=== PATIENT | male | born 1955 | race Caucasian/White ===

== ENCOUNTER 2016-10-23 09:01 | Emergency (ER) | payer OTHER ==
[~2016-10-23] VITALS: Ht 182.9 cm; Wt 120.0 kg
[~2016-10-23 09:01] MED LIST: CARV12.52 PO; GLIP5 PO; GLUCTAB PO; LISI-360 PO; OMEP20TA PO; ST JTAB PO; ZOCO40TA PO
[2016-10-23 09:05] VITALS: BP 113/74; PULSE 77; RESP 16; TEMP 98.1; O2SAT 98
[2016-10-23] MEDS ORDERED: ASPI81CH CHEW (09:25)
[2016-10-23] MEDS ORDERED: GLIP5TAB8 PO (09:25)
[2016-10-23] MEDS ORDERED: CARV12.52 PO (09:25)
[2016-10-23] MEDS ORDERED: SIMV80TA PO (09:25)
[2016-10-23] MEDS ORDERED: LISI10TA3 PO (09:25)
[2016-10-23] MEDS ORDERED: OMEP20TA PO (09:25)
[2016-10-23] MEDS ORDERED: METF500T PO (09:25)
[2016-10-23] MEDS ORDERED: SODIUM CHLORIDE 0.9% FLUSH 10 ML FLUSH IV FLUSH PRN (09:30)
--- NOTE | 2016-10-23 09:46 | PD ---
HPI . Abdominal bloating and constipation Chief Complaint: GI Complaint Time Seen by Provider: 09:22 Travel History International Travel<30 days: No Contact w/Intl Traveler<30days: No Traveled to known affect area: No History of Present Illness HPI This patient presents with the chief complaint of abdominal bloating and constipation for 5 days. His symptoms are exacerbated by eating and relieved by taking magnesium citrate. He reports minimal pain and rates it at 1/10. He has had no associated vomiting or fever. He does report decreased urinary output. He reports a previous similar episode several weeks ago. He took magnesium citrate and seemed to be normal until his symptoms recurred 5 days ago. The patient reports no chronic medical problems and states that he does not take any medications regularly. The patient subsequently admits to a history of hypertension, diabetes, previous PR status post CABG. He takes various medications for all of these problems. PFSH Past Medical History Hx Anticoagulant Therapy: Yes (asa 81mg) Anxiety: Yes Cardiovascular Problems: Yes (htn on meds, 5 vessel bypass, PR x 1) High Cholesterol: Yes Coronary Artery Disease: Yes Diabetes: Yes (type 2) Patient Takes Glucophage: No Diminished Hearing: No GERD: Yes Hypertension: Yes Musculoskeletal: Yes (chronic right knee pain) Immunizations Current: No Myocardial Infarction: Yes Past Surgical History Coronary Artery Bypass Graft: Yes (5 vessel 12/2013) Social History Alcohol Use: No Tobacco Use: No Substance Use: No Allergies-Medications (Allergen,Severity, Reaction): Coded Allergies: No Known Allergies (Verified , 10/23/16) Reported Meds & Prescriptions Reported Meds & Active Scripts Active Reported Simvastatin 80 Mg Tab 80 Mg PO HS Omeprazole 20 Mg Tab 20 Mg PO DAILY Metformin (Metformin HCl) 500 Mg Tab 500 Mg PO BIDPC With meals Lisinopril 10 Mg Tab 10 Mg PO DAILY Glipizide 5 Mg Tab 5 Mg PO DAILY Take 30 minutes before a meal Carvedilol 12.5 Mg Tab 12.5 Mg PO BID Aspirin 81 Mg Chew 81 Mg CHEW DAILY Review of Systems Except as stated in HPI: all other systems reviewed are Neg General / Constitutional: No: Fever, Chills Cardiovascular: No: Chest Pain or Discomfort Respiratory: No: Shortness of Breath Gastrointestinal: Positive: Abdominal Pain, Constipation, No: Nausea, Vomiting , Diarrhea Genitourinary: Positive: Decreased Urinary Output, No: Urgency, Frequency, Dysuria Physical Exam Narrative GENERAL: Obese man who does not appear to be in any acute distress. He is lying comfortably on the stretcher. SKIN: Warm and dry. He is noted to have scars on both lower extremities medially compatible with previous CABG. HEAD: Atraumatic. Normocephalic. EYES: Pupils equal and round. Sclerae are anicteric. ENT: No nasal bleeding or discharge. Mucous membranes pink and moist. NECK: Trachea midline. Neck is supple. CARDIOVASCULAR: Regular rate and rhythm. Heart sounds are normal. RESPIRATORY: No accessory muscle use. Lungs are clear with good air movement throughout. GASTROINTESTINAL: Abdomen soft, non-tender, nondistended. RECTAL: No hemorrhoids seen. Rectal tone is normal. There is no significant stool in the rectal vault. MUSCULOSKELETAL: No obvious deformities. No edema. NEUROLOGICAL: Awake and alert. No obvious cranial nerve deficits. Motor grossly within normal limits. Normal speech. PSYCHIATRIC: Appropriate mood and affect; insight and judgment normal. Data Data Last Documented VS Vital Signs Date Time Temp Pulse Resp B/P (MAP) Pulse Ox O2 Delivery O2 Flow Rate FiO2 10/23/16 09:05 98.1 77 16 113/74 (87) 98 Orders Orders Basic Metabolic Panel (Bmp) (10/23/16 09:30) Complete Blood Count With Diff (10/23/16 09:30) Sodium Chloride 0.9% Flush (Ns Flush) (10/23/16 09:30) Ct Abd/Pel W/O Iv Contrast (10/23/16 10:36) Sodium Chlor 0.9% 1000 Ml Inj (Ns 1000 M (10/23/16 10:45) Labs Laboratory Tests Test 10/23/16 09:42 White Blood Count 10.1 TH/MM3 Red Blood Count 4.88 MIL/MM3 Hemoglobin 13.2 GM/DL Hematocrit 39.9 % Mean Corpuscular Volume 81.7 FL Mean Corpuscular Hemoglobin 27.1 PG Mean Corpuscular Hemoglobin Concent 33.2 % Red Cell Distribution Width 13.8 % Platelet Count 280 TH/MM3 Mean Platelet Volume 8.4 FL Neutrophils (%) (Auto) 78.6 % Lymphocytes (%) (Auto) 10.5 % Monocytes (%) (Auto) 6.8 % Eosinophils (%) (Auto) 2.2 % Basophils (%) (Auto) 1.9 % Neutrophils # (Auto) 7.9 TH/MM3 Lymphocytes # (Auto) 1.1 TH/MM3 Monocytes # (Auto) 0.7 TH/MM3 Eosinophils # (Auto) 0.2 TH/MM3 Basophils # (Auto) 0.2 TH/MM3 CBC Comment DIFF FINAL Differential Comment Blood Urea Nitrogen 32 MG/DL Creatinine 1.80 MG/DL Random Glucose 225 MG/DL Calcium Level 9.5 MG/DL Sodium Level 136 MEQ/L Potassium Level 5.1 MEQ/L Chloride Level 98 MEQ/L Carbon Dioxide Level 30.2 MEQ/L Anion Gap 8 MEQ/L Estimat Glomerular Filtration Rate 39 ML/MIN MDM Medical Decision Making Medical Screen Exam Complete: Yes Emergency Medical Condition: Yes Medical Record Reviewed: Yes (medical history significant for hypertension, diabetes, previous PR status post CABG and previous poor wound healing) Differential Diagnosis Differential diagnosis of abdominal pain includes but is not limited to gastritis, pancreatitis, hepatitis, gastroenteritis, gallbladder disease, constipation, urinary retention, UTI, peptic ulcer disease, diverticulitis or appendicitis Narrative Course This patient presents complaining with abdominal bloating associated with the patient for the last 5 days. He has a benign abdominal exam and appears well. CBC & BMP Diagram 10/23/16 09:42 Calcium Level 9.5 Renal function has worsened. I have ordered a fluid bolus. CT abd/pelvis: CONCLUSION: 1. Small approximate 3-4 mm left UVJ stone causing slight hydronephrosis. 2. 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 This man has a kidney stone. He will be treated with Flomax. He is having very little pain so I will treat his pain with Ultram. He will be referred to urology. Diagnosis Primary Impression: abdominal bloating Additional Impression: Kidney stone Referrals: Luke Camarillo MD 3 days Patient Instructions: General Instructions, Kidney Stones (DC) Med/Other Pt SpecificInfo: Prescription(s) given Scripts Tramadol (Ultram) 50 Mg Tab 50 MG PO Q4H Y for PAIN, #12 TAB 0 Refills Prov: Trupti Caldwell MD 10/23/16 Tamsulosin (Flomax) 0.4 Mg Cap 0.4 MG PO HS for Manage Prostate Problems, #30 CAP 0 Refills Prov: Trupti Caldwell MD 10/23/16 Disposition: 01 DISCHARGE HOME Condition: Stable Trupti Caldwell MD Oct 23, 2016 09:46
[2016-10-23 09:51] LABS: AUTOMATED NEUTROPHIL # 7.9 TH/MM3 (1.8-7.7); BASOPHIL # 0.2 TH/MM3 (0-0.2); BASOPHIL % 1.9 % (0.0-2.0); EOSINOPHIL # 0.2 TH/MM3 (0-0.4); EOSINOPHIL % 2.2 % (0.0-4.0); HEMATOCRIT 39.9 % (39.0-51.0); LYMPH % 10.5 % (9.0-44.0); LYMPHOCYTE # 1.1 TH/MM3 (1.0-4.8); MEAN CELL VOLUME 81.7 FL (80.0-100.0); MEAN CORPUSCULAR HEMOGLOBIN 27.1 PG (27.0-34.0); MEAN CORPUSCULAR HGB CONC 33.2 % (32.0-36.0); MONO % 6.8 % (0.0-8.0); NEUT % 78.6 % (16.0-70.0); PLATELET COUNT 280 TH/MM3 (150-450); RED BLOOD COUNT 4.88 MIL/MM3 (4.50-5.90); RED CELL DISTRIBUTION WIDTH 13.8 % (11.6-17.2); WHITE BLOOD COUNT 10.1 TH/MM3 (4.0-11.0)
[2016-10-23 10:06] LABS: BICARBONATE 30.2 MEQ/L (21.0-32.0)
[2016-10-23 10:14] LABS: HEMO FLAGS DIFF FINAL; POTASSIUM 5.1 MEQ/L (3.5-5.1)
[2016-10-23] MEDS ORDERED: SODIUM CHLOR 0.9% 1000 ML INJ 1,000 ML IV ONE (10:45)
--- NOTE | 2016-10-23 11:10 | RADRPT ---
EXAM DATE/TIME: 10/23/2016 10:38 [facility] COMPARISON: No previous studies available for comparison. INDICATIONS : Left abdominal pain, abdominal distention and constipation x 5 days. ORAL CONTRAST: No oral contrast ingested. RADIATION DOSE: 22.23 CTDIvol (mGy) MEDICAL HISTORY : Gastroesophageal reflux disease. Diabetes mellitus type 2. Myocardial infarction.Hypertension. SURGICAL HISTORY : CABG ENCOUNTER: Initial ACUITY: 4 - 6 days PAIN SCALE: 1/10 LOCATION: Left abdomen. TECHNIQUE: Volumetric scanning of the abdomen and pelvis was performed. Using automated exposure control and ad justment of the mA and/or kV according to patient size, radiation dose was kept as low as reasonably achievable to obtain optimal diagnostic quality images. DICOM format image data is available electro nically for review and comparison. FINDINGS: CT Abdomen: The liver, spleen, pancreas, right kidney, left adrenal are unremarkable. There is a sm all 3-4 mm left UVJ stone causes mild hydronephrosis in the left kidney. Small splenic splenule is se en. There is no evidence for any appreciable pathological adenopathy, free fluid, or bowel obstructio n. Evidence for prior granulomatous exposure with a calcified melanoma right lung base and multiple granulomas in the spleen. There are shotty subcentimeter retroperitoneal lymph nodes benign in appear ance. Approximate 3.4 cm low attenuating mass is present in the right adrenal gland probably an adeno ma. CT pelvis: There is no evidence for mass, abscess formation, or any significant adenopathy within the pelvis. The prostate gland is inhomogeneous and measures 3.7 x 4.5 cm in AP and transverse diameters and nonspecific. CONCLUSION: 1. Small approximate 3-4 mm left UVJ stone causing slight hydronephrosis. 2. 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 Malcom Thomas MD on October 23, 2016 at 10:50 Board Certified Radiologist. This report was verified electronically.
[2016-10-23] MEDS ORDERED: TAMS5CAP PO (11:31)
[2016-10-23] MEDS ORDERED: ULTR50TA5 PO (11:31)
[2016-10-23 11:32] VITALS: BP 119/69; PULSE 80; RESP 16; O2SAT 98
== END 2016-10-23 11:55 | disposition home or self-care (01) ==
LOC: PHED 09:01
DX: N13.2 Hydronephrosis with renal and ureteral calculous obstruction (principal); R14.0 Abdominal distension (gaseous); K59.00 Constipation, unspecified; E11.9 Type 2 diabetes mellitus without complications; I10 Essential (primary) hypertension; I25.2 Old myocardial infarction; Z79.82 Long term (current) use of aspirin; K21.9 Gastro-esophageal reflux disease without esophagitis
CPT/HCPCS: 74176; 80048; 85025; 99285; J7030

== ENCOUNTER 2017-03-18 17:13 | Emergency (ER) | payer OTHER ==
[~2017-03-18] VITALS: Ht 182.9 cm; Wt 128.0 kg
[~2017-03-18 17:13] MED LIST changes: +ASPI-516 CHEW; -GLIP5 PO; +GLIP5TAB8 PO; -GLUCTAB PO; -LISI-360 PO; +LISI10TA3 PO; +METF500T PO; -OMEP20TA PO; +OMEP20TA93 PO; +SIMV80TA PO; -ST JTAB PO; +TAMS5CAP PO; +TRAM50 PO; -ZOCO40TA PO
[2017-03-18 17:21] VITALS: BP 187/98; PULSE 83; RESP 17; TEMP 99; O2SAT 98
--- NOTE | 2017-03-18 18:17 | PD ---
HPI Chief Complaint: Respiratory Symptoms Time Seen by Provider: 18:07 Travel History International Travel<30 days: No Contact w/Intl Traveler<30days: No Traveled to known affect area: No History of Present Illness HPI This is a 61-year-old male with history of type 2 diabetes who presents for evaluation of cough, congestion. Symptoms started 5 days ago. He feels like he has been expressing wheezing as well. He has been using [id number] cough and cold medications but symptoms persisted which prompted evaluation. Denies fevers or chills, sore throat, rash, recent travel. No history of COPD or asthma. He has no other complaints at this time. PFSH Past Medical History Hx Anticoagulant Therapy: Yes (asa 81mg) Anxiety: Yes Cardiovascular Problems: Yes (htn on meds, 5 vessel bypass, [place] x 1) High Cholesterol: Yes Coronary Artery Disease: Yes Diabetes: Yes (type 2) Diminished Hearing: No GERD: Yes Hypertension: Yes Musculoskeletal: Yes (chronic right knee pain) Immunizations Current: No Myocardial Infarction: Yes Past Surgical History Coronary Artery Bypass Graft: Yes (5 vessel 12/2013) Social History Alcohol Use: No Tobacco Use: No Substance Use: No Allergies-Medications (Allergen,Severity, Reaction): Coded Allergies: No Known Allergies (Verified Adverse Reaction, Unknown, 03/18/17) Reported Meds & Prescriptions Reported Meds & Active Scripts Active Proair Hfa 8.5 GM Inh (Albuterol Sulfate) 90 Mcg/Act Aer 2 Puff INH Q4-6H PRN 108 mcg/actuation Prednisone 20 Mg Tab 20 Mg PO BID 5 Days Reported Allopurinol 100 Mg Tab 100 Mg PO DAILY Glipizide 10 Mg Tab 10 Mg PO DAILY Take 30 minutes before a meal Simvastatin 80 Mg Tab 40 Mg PO HS Metformin (Metformin HCl) 500 Mg Tab 500 Mg PO 2 AM,1PM With meals Lisinopril 10 Mg Tab 40 Mg PO DAILY Glipizide 5 Mg Tab 5 Mg PO DAILY Take 30 minutes before a meal Carvedilol 12.5 Mg Tab 12.5 Mg PO BID Aspirin 81 Mg Chew 81 Mg CHEW DAILY Review of Systems Except as stated in HPI: all other systems reviewed are Neg Physical Exam Narrative GENERAL: Well-nourished male in no acute distress SKIN: Warm and dry. HEAD: Atraumatic. Normocephalic. EYES: Pupils equal and round. No scleral icterus. No injection or drainage. ENT: No nasal bleeding or discharge. Mucous membranes pink and moist. NECK: Trachea midline. No JVD. CARDIOVASCULAR: Regular rate and rhythm. No murmur appreciated. RESPIRATORY: No accessory muscle use. Mild end expiratory wheezing noted bilaterally. No crackles. GASTROINTESTINAL: Abdomen soft, non-tender, nondistended. Hepatic and splenic margins not palpable. MUSCULOSKELETAL: No obvious deformities. No clubbing. No cyanosis. No edema. NEUROLOGICAL: Awake and alert. No obvious cranial nerve deficits. Motor grossly within normal limits. Normal speech. PSYCHIATRIC: Appropriate mood and affect; insight and judgment normal. Data Data Last Documented VS Vital Signs Date Time Temp Pulse Resp B/P (MAP) Pulse Ox O2 Delivery O2 Flow Rate FiO2 03/18/17 17:21 99.0 83 17 187/98 (127) 98 Orders Orders Albuterol-Ipratropium Neb (Duoneb Neb) (03/18/17 18:30) Prednisone (Deltasone) (03/18/17 18:30) Blood Glucose (03/18/17 18:16) Ed Discharge Order (03/18/17 18:58) [facility] Medical Decision Making Medical Screen Exam Complete: Yes Emergency Medical Condition: Yes Medical Record Reviewed: Yes Differential Diagnosis Bronchitis, reactive airway disease, pneumonia, influenza Narrative Course On examination the patient does have mild end expiratory wheezing. Overall he appears well. The patient was given a DuoNeb treatment with significant improvement in his symptoms. He will be discharged with a short course of prednisone and an albuterol inhaler. Discussed the importance of monitoring blood sugar while on prednisone. Stable for discharge. Diagnosis Primary Impression: Bronchitis Additional Instructions: Medication as prescribed. Monitor blood sugar while taking prednisone. Follow- up with primary care physician and return for any emergent medical conditions. Med/Other Pt SpecificInfo: Prescription(s) given Scripts Albuterol 8.5 GM Inh (Proair Hfa 8.5 GM Inh) 90 Mcg/Act Aer 2 PUFF INH Q4-6H Y for SHORTNESS OF BREATH, #1 INHALER 0 Refills 108 mcg/actuation Prov: Mick Wynn MD 03/18/17 Prednisone (Prednisone) 20 Mg Tab 20 MG PO BID for 5 Days, #10 TAB 0 Refills Prov: Mick Wynn MD 03/18/17 Disposition: 01 DISCHARGE HOME Condition: Stable Justo Burns Mar 18, 2017 18:17
[2017-03-18] MEDS ORDERED: ALLO100T PO (18:26)
[2017-03-18] MEDS ORDERED: GLIP10TA6 PO (18:26)
[2017-03-18] MEDS ORDERED: predniSONE 20 MG TAB PO ONE (18:30)
[2017-03-18] MEDS ORDERED: RESP: ALBUTEROL 2.5 MG/IPRATROPIUM 0.5 MG NEB (SCH) INH ONE (18:30)
[2017-03-18] MEDS ORDERED: PRED20 PO (18:47)
[2017-03-18] MEDS ORDERED: ALBUAER3 INH (18:47)
== END 2017-03-18 19:24 | disposition home or self-care (01) ==
LOC: PHED 17:13 → PHEFT 19:24
DX: J40 Bronchitis, not specified as acute or chronic (principal); R06.2 Wheezing; E11.9 Type 2 diabetes mellitus without complications; I10 Essential (primary) hypertension; I25.10 Atherosclerotic heart disease of native coronary artery without angina pectoris; E78.00 Pure hypercholesterolemia, unspecified; I25.2 Old myocardial infarction; Z79.82 Long term (current) use of aspirin; Z79.84 Long term (current) use of oral hypoglycemic drugs; Z86.59 Personal history of other mental and behavioral disorders; Z87.39 Personal history of other diseases of the musculoskeletal system and connective tissue
CPT/HCPCS: 94664; 99284; J7512

== ENCOUNTER 2017-03-25 10:52 | Emergency (ER) | payer OTHER ==
[2017-03-25] MEDS ORDERED: SODIUM CHLORIDE 0.9% FLUSH 10 ML FLUSH IVF (13:00)
[2017-03-25] MEDS: predniSONE 50 MG TAB PO (13:09)
[2017-03-25] MEDS: RESP: ALBUTEROL 2.5 MG/IPRATROPIUM 0.5 MG NEB (SCH) INH ×3 (13:26)
== END 2017-03-25 14:26 | disposition home or self-care (01) ==
LOC: PHEFT 10:52
DX: J40 Bronchitis, not specified as acute or chronic (principal); E11.9 Type 2 diabetes mellitus without complications; I10 Essential (primary) hypertension; Z79.01 Long term (current) use of anticoagulants
CPT/HCPCS: 71045; 94640; 94664; 99284